=== PATIENT | female | born 1960 | race Caucasian/White ===

== ENCOUNTER 2018-10-01 14:28 | Outpatient (RCR) | payer OTHER | END 2018-12-30 | disposition home or self-care (01) | LOC: WSOH | DX: G56.01 Carpal tunnel syndrome, right upper limb (principal); X50.3XXD Overexertion from repetitive movements, subsequent encounter; Z87.891 Personal history of nicotine dependence; Z79.899 Other long term (current) drug therapy; Z79.890 Hormone replacement therapy | CPT/HCPCS: 24091; A6549 ==